=== PATIENT | male | born 1995 | race Caucasian/White ===

== ENCOUNTER 2019-08-05 06:02 | Outpatient (CLI) | payer OTHER ==
[~2019-08-05] VITALS: Ht 177.8 cm; Wt 79.5 kg
[2019-08-05 06:35] VITALS: BP 147/84; PULSE 72; TEMP 97.7
[2019-08-05 09:35] VITALS: BP 123/73; PULSE 76
--- NOTE | 2019-08-05 09:40 | NUR ---
Pt is p,w,d and ambulatory to exit with steady gait, with and kids. pt verbalized understanding of dc/f/u instructions. saline lock was dc'd, cath intact, dressing applied. no concerns expressed at time of departure.
== END 2019-08-05 09:45 | disposition home or self-care (01) ==
LOC: COL.CAR 06:02
DX: R55 Syncope and collapse (principal)

== ENCOUNTER → 2019-08-17 | Outpatient (CLI) | payer OTHER | LOC: COL.CARD 09:41 | DX: R55 Syncope and collapse (principal) ==

== ENCOUNTER 2020-06-12 10:04 | Outpatient (CLI) | payer OTHER ==
[~2020-06-12] VITALS: Ht 177.8 cm; Wt 79.7 kg
[2020-06-12 11:05] VITALS: BP 139/71; PULSE 74; TEMP 98.3
[2020-06-12] MEDS ORDERED: CEPHALEXIN250 M1 PO (11:37)
[2020-06-12 11:56] VITALS: BP 141/69; PULSE 83
--- NOTE | 2020-06-12 11:56 | NUR ---
Discharge instructions given to pt.pt verbalizes understanding.Dressing observed lean,dry,intact.
--- NOTE | 2020-06-12 12:02 | NUR ---
Pt escorted out by this nurse.
== END 2020-06-12 12:03 | disposition home or self-care (01) ==
LOC: COL.CAR 10:04
DX: R55 Syncope and collapse (principal); I47.1 Supraventricular tachycardia; Z87.891 Personal history of nicotine dependence; Z20.828 Contact with and (suspected) exposure to other viral communicable diseases